=== PATIENT | female | born 1970 | race Two or more races ===

== ENCOUNTER 2019-07-31 23:20 | Emergency (ER) | payer OTHER ==
[~2019-07-31] VITALS: Ht 157.5 cm; Wt 65.3 kg
[2019-08-01] MEDS ORDERED: ORPHENADRINE C100 MG PO (03:19)
[2019-08-01] MEDS ORDERED: KETO10TA2 PO (03:19)
== END 2019-08-01 03:33 | disposition home or self-care (01) ==
LOC: ER 23:20
DX: R10.31 Right lower quadrant pain (principal); M54.89 Other dorsalgia

== ENCOUNTER 2022-11-17 05:15 | Day surgery (SDC) | payer OTHER ==
[~2022-11-17 05:15] MED LIST: KETO10TA2 PO; ORPHENADRINE C100 MG PO
[2022-11-17] MEDS ORDERED: PERCOCET 5-3251 EACH PO (11:33)
== END 2022-11-17 12:40 | disposition home or self-care (01) ==
LOC: CIR.AMB 05:15
PROVIDERS: ATTEND Surgery
DX: D17.23 Benign lipomatous neoplasm of skin and subcutaneous tissue of right leg (principal); R22.41 Localized swelling, mass and lump, right lower limb; Z20.822 Contact with and (suspected) exposure to COVID-19